=== PATIENT | male | born 2000 | race Caucasian/White ===

== ENCOUNTER 2025-02-20 00:07 | Emergency (ER) | payer SELFPAY ==
[2025-02-20 00:19] VITALS: BP 150/82; PULSE 110; RESP 18; TEMP 36.6; O2SAT 96; BMI 31.2
--- NOTE | 2025-02-20 00:20 | ED_ITS ---
HPI - General Adult General Chief complaint: Psychiatric Symptoms Stated complaint: PSYCH, ETOH, SI IN PD CUSTODY PER EMS Time Seen by Provider: 02/20/25 00:10 Source: patient, EMS and police Mode of arrival: EMS Limitations: other ( alcohol intoxication) History of Present Illness ED Provider: DR. Esqueda HPI narrative: 25-year-old male came in by the police for evaluation after was found drunk, patient made suicidal statement to his mother was made section 12 by the police on arrival patient is intoxicated stated that he is feeling depressed and suicidal because he is breaking up with his girlfriend, no specific plan in his head, patient admit to drink alcohol last night that he usually a does occasionally, declined using any drugs. Related Data Home Medications ?Medication ?Instructions ?Recorded ?Confirmed No Known Home Meds 02/20/25 02/20/25 Allergies Allergy/AdvReac Type Severity Reaction Status Date / Time No Known Allergies Allergy Verified 02/20/25 00:20 [No Known Allergies*] Review of Systems 2 Review of Systems: All other systems are reviewed and are negative Constitutional: Reports as per HPI and Reports no additional constitutional complaints Eyes: Reports as per HPI and Reports no additional eye complaints Reports system reviewed and no additional complaints, except as documented Cardiovascular: Reports as per HPI and Reports no additional cardiovascular complaints Respiratory: Reports as per HPI and Reports no additional respiratory complaints Gastrointestinal: Reports as per HPI and Reports no additional gastrointestinal complaints Genitourinary: Reports no additional female genitourinary complaints Musculoskeletal: Reports no additional musculoskeletal complaints Skin/Breast: Reports system reviewed and no additional complaints, except as docu Psychiatric: Reports no additional psychiatric complaints Endocrine: Reports no additional endocrine complaints Hematologic/Lymphatic: Reports no additional hematologic/lymphatic complaints Allergic/Immunologic: Reports no additional allergic/immunologic complaints Reports system reviewed and no additional complaints, except as documented and Reports Abnormal speech present [facility] Social History Social History Alcohol intake: current Alcohol intake frequency: a few times a month Alcohol type: beer and hard liquor Smoked in Last 30 Days: Yes Use of substances other than those prescribed or required for medical reasons: No Advance Directives: No Advance Directives Information Provided: No Physical Exam ED Vital Signs: Vital Signs - 24 hr 02/20/25 00:19 02/20/25 07:31 02/20/25 09:52 Temperature 97.9 F 98.1 F Pulse Rate 110 H 82 Respiratory Rate 18 16 18 Blood Pressure 150/82 H 134/60 Pulse Oximetry 96 98 Oxygen Delivery Method Room Air Room Air BMI result Body Mass Index 31.2 Vital signs have been reviewed and appear to be correct. Blood pressure elevated. Heart rate normal. Respiratory rate normal. Temperature normal. Oxygen saturation normal. Appearance: Intoxicated,Alert. Oriented X1 to person not to place or time.. No acute distress. Head: Normal external exam. Normocephalic. Atraumatic. No Dia signs noted. No raccoon eyes noted Eyes: PERRLA. EOMI. Conjunctiva and sclera normal. Eyelids normal. ENT: TM's Normal. Pharynx normal. Uvula midline. Moist mucous membranes. No trismus noted. No drooling noted. No muffled voice noted. Neck: Normal inspection. Neck supple. FROM. No adenopathy. Thyroid Normal. No meningeal signs. No neck mass noted. CVS: Normal heart rate and rhythm. Heart sound normal. No murmurs noted. Pulses normal throughout. Respiratory: No respiratory distress. Painless inspiration. Breath sounds normal. No wheezes/rales/rhonchi noted. Chest nontender. No accessory muscle usage noted or decreased air movement noted. Abdomen: Soft and nontender. Bowel sounds normal in all 4 quadrants. No distention noted. No organomegaly noted. No visible injury noted. Back: No CVA tenderness. Full range of motion noted. Skin: Skin warm and dry. Normal skin color. Normal skin turgor. No rashes/lesions/lacerations noted. Extremities: No lower extremity edema. Extremities exhibit normal range of motion. Extremities nontender. Neuro: Oriented X1 Cranial nerve exam: II-XII are grossly intact No motor deficit. No sensory deficit. Reflexes normal. Course Reevaluation(s) Reevaluation #1: will start physician observation, signed out to Dr. Reyes patient need to be re-evaluated when he is sober. Time: 01:32 Reevaluation #2: Time: 08:00 Date: 02/20/25 Provider: Phil Reyes MD Patient in physician observation for psychiatric evaluation. I assumed care of this patient from my colleague, Dr. Esqueda at 02:00 hours. No reported incidents on the patient while he was under my care. Patient's care was turned over my colleague, Dr. Mikel Cancino Time: 08:34 Date: 02/20/25 Provider: Mikel Cancino MD Patient in physician observation for psychiatric evaluation.? No acute events reported overnight. No current complaints. VS stable.? Patient is in bed search status/pending CARE team evaluation. Will continue to monitor. Reevaluation #3: Time: 10:45 Date: 02/20/25 Provider: Mikel Cancino MD Physician observation ended at this time. Patient has been cleared for discharge by the CARE team. Will follow up as an outpatient. hot the fuck who sounds abdomen Medical Decision Making Differential Diagnosis Differential Diagnoses: The differential diagnosis associated with the presentation includes ( medical clearance, alcohol intoxication, drug abuse, SI, HI, hallucination.) Admission/Observation Consideration of admission/observation: Escalation of care including admission/observation considered Lab Data 02/20/25 08:52 02/20/25 08:52 Labs: Lab Results 02/20/25 02/20/25 Range/Units 08:52 09:11 WBC 7.1 (4.8-10.8) X10*3/uL RBC 4.73 (4.60-5.80) X10*6/uL Hgb 14.3 (14.0-18.0) g/dl Hct 41.6 L (42.0-52.0) % MCV 87.9 (80.0-98.0) fL MCH 30.2 (27.0-33.0) pg MCHC 34.4 (31.0-36.0) g/dl RDW 12.4 (11.0-16.0) % Plt Count 274 (160-400) X10*3/uL MPV 10.4 (9.4-12.4) fL Immature Gran % (Auto) 0.1 (0.0-0.4) % Neut % (Auto) 53.1 (45-73) % Lymph % (Auto) 37.4 (20-40) % Stanley % (Auto) 6.8 (2-11) % Eos % (Auto) 2.3 (0-4) % Baso % (Auto) 0.3 (0-2) % Lymph # (Auto) 2.7 (1.2-4.9) X10*3/uL Stanley # (Auto) 0.5 (0.1-1.2) X10*3/uL Eos # (Auto) 0.2 (0.0-0.4) X10*3/uL Baso # (Auto) 0.0 (0.0-0.2) X10*3/uL Abs Immat Gran (auto) 0.01 (0.00-0.03) X10*3/uL Absolute Neuts (auto) 3.8 (2.0-8.3) x10*3/uL Absolute Nucleated RBC 0.000 (0.0-0.012) X10*3/uL Nucleated RBC % (auto) 0.0 (0.0-0.2) /100WBC Sodium 145 (135-145) mmol/L Potassium 4.1 (3.3-5.1) mmol/L Chloride 112 H (96-108) mmol/L Carbon Dioxide 22 (22-29) mmol/L Anion Gap 15 (12-20) BUN 12 (9-16) mg/dL Creatinine 0.93 (0.5-1.4) mg/dL Estim Creat Clear Calc 150.3 Estimated GFR > 60 Random Glucose 92 (60-115) mg/dL Calcium 9.3 (8.4-10.2) mg/dL Total Bilirubin 0.2 (0.0-1.0) mg/dL Direct Bilirubin < 0.2 (0.0-0.5) mg/dL AST 39 H (5-37) U/L ALT 36 (0-40) U/L Alkaline Phosphatase 84 (39-117) U/L Total Protein 7.7 (6.5-8.0) g/dL Albumin 4.7 (3.5-5.0) g/dL Lipase 24 (8-78) U/L Urine Color Yellow Urine Appearance Clear Urine pH 5.0 (5.0-9.0) Ur Specific Fowler 1.020 (1.005-1.025) Urine Protein Negative (Neg-Trace) mg/dL Urine Glucose (UA) Negative (Negative) mg/dL Urine Ketones Negative (Negative) mg/dL Urine Blood Negative (Negative) Urine Nitrite Negative (Negative) Ur Leukocyte Esterase Negative (Negative) Urine Opiates Screen Not Detected (Not Detect) Ur Buprenorphine Scrn Not Detected (Not Detect) ng/mL Ur Oxycodone Screen Not Detected (Not Detect) ng/mL Urine Methadone Screen Not Detected (Not Detect) ng/mL Urine Fentanyl Screen Not Detected (Not Detect) Ur Barbiturates Screen Not Detected (Not Detect) Ur Phencyclidine Scrn Not Detected (Not Detect) Ur Amphetamines Screen Not Detected (Not Detect) U Benzodiazepines Scrn Not Detected (Not Detect) Urine Cocaine Screen Not Detected (Not Detect) U Marijuana (THC) Screen Not Detected (Not Detect) Ethyl Alcohol 88 mg/dL Discharge Plan Discharge Clinical Impression: Alcohol intoxication, Suicidal ideation Patient Disposition: Home, Self-Care Instructions: Abuse of Alcohol (DC), Help Prevent Suicide (ED) Additional Instructions: _ DISCHARGE DIAGNOSES: Alcohol use disorder and suicidal thoughts HISTORY OF PRESENTATION: ?You presented for evaluation for the above EMERGENCY DEPARTMENT COURSE,TESTS, TREATMENTS: While in the ED today you were evaluated by our crisis team DISCHARGE MEDICATIONS: ?[We have made no changes to your regular medication regimen] FOLLOW-UP: ?Call your primary or general physician soon as possible to discuss your symptoms, your ED visit and to discuss follow up plans Call your primary care and mental health specialist for follow up as discussed with care team INSTRUCTIONS ?& RETURN PRECAUTIONS: If any symptoms change first call your primary physician, if it is after-hours your primary doctors office should have a provider fashion patternmaker you can speak with. If the symptoms are severe or very concerning to you then call 911 or return to the ED. [07] Mikel Cancino MD Emergency Physician [facility] Prescriptions: No Action No Known Home Meds Referrals: [facility] [place] [facility] [Provider Group] Interventions: [place]-Suicide Risk Severity Scale Last Done: 02/20/25 03:29 ED Discharge Assessment Last Done: 02/20/25 11:20 Discharge Date/Time: 02/20/25 11:21 Print Language: Cambodian
--- NOTE | 2025-02-20 00:25 | PC.NURSE ---
pt refused lab work, will provide urine but does not have to pee yet
--- NOTE | 2025-02-20 00:40 | PC.NURSE ---
report given to Pod. pt calm and cooperative at this time
--- NOTE | 2025-02-20 01:07 | MHC.EDTECH ---
pt refusing lab work, VS. RN AWARE.
[2025-02-20 07:31] VITALS: RESP 16
--- NOTE | 2025-02-20 07:32 | PC.NURSE ---
Assumed care of patient at 0645, patient appears to be in no apparent distress this am, laying in bed, refusing labs/urine. Continue plan of care for medical clearance and CARE team ignacia
[2025-02-20 08:56] LABS: MANUAL DIFF FLAG NO
[2025-02-20 08:57] LABS: Basophils Percent Auto 0.3 % (0-2); Eosinophils Absolute Auto 0.2 X10*3/uL (0.0-0.4); Eosinophils Percent Auto 2.3 % (0-4); Hematocrit 41.6 % (42.0-52.0); Hemoglobin 14.3 g/dl (14.0-18.0); Imm Gran Abs Auto 0.01 X10*3/uL (0.00-0.03); Imm Gran Pct Auto 0.1 % (0.0-0.4); Lymphocytes Absolute Auto 2.7 X10*3/uL (1.2-4.9); Lymphocytes Percent Auto 37.4 % (20-40); Mean Corpuscular HGB Conc 34.4 g/dl (31.0-36.0); Mean Corpuscular Hemoglobin 30.2 pg (27.0-33.0); Mean Corpuscular Volume 87.9 fL (80.0-98.0); Mean Platelet Volume 10.4 fL (9.4-12.4); Monocytes Absolute Auto 0.5 X10*3/uL (0.1-1.2); Monocytes Percent Auto 6.8 % (2-11); Neutrophils Absolute Auto 3.8 x10*3/uL (2.0-8.3); Neutrophils Percent Auto 53.1 % (45-73); Platelet Count 274 X10*3/uL (160-400); Red Blood Count 4.73 X10*6/uL (4.60-5.80); Red Cell Distribution Width 12.4 % (11.0-16.0); White Blood Count 7.1 X10*3/uL (4.8-10.8)
--- NOTE | 2025-02-20 09:07 | PC.NURSE ---
Pt agreeable to bloodwork and labs this am after speaking with this RN regarding the importance for being seen by CARE team
[2025-02-20 09:28] LABS: Alanine Aminotransferase 36 U/L (0-40); Albumin Level 4.7 g/dL (3.5-5.0); Alkaline Phosphatase 84 U/L (39-117); Anion Gap 15 (12-20); Aspartate Amino Transferase 39 U/L (5-37); Bilirubin Direct < 0.2 mg/dL (0.0-0.5); Bilirubin Total 0.2 mg/dL (0.0-1.0); Blood Urea Nitrogen 12 mg/dL (9-16); Calcium 9.3 mg/dL (8.4-10.2); Carbon Dioxide 22 mmol/L (22-29); Chloride 112 mmol/L (96-108); Creatinine Clr Calc Pharmacy 150.3; Estimated Glomerular Filt Rate > 60; Ethanol 88 mg/dL; Glucose Random 92 mg/dL (60-115); Lipase 24 U/L (8-78); Potassium 4.1 mmol/L (3.3-5.1); Sodium 145 mmol/L (135-145); Total Protein 7.7 g/dL (6.5-8.0)
[2025-02-20 09:35] LABS: Amphetamine Screen Urine Not Detected (Not Detect); Barbiturates, Urine Not Detected (Not Detect); Benzodiazepines Screen Urine Not Detected (Not Detect); Buprenorphine Scr Not Detected (Not Detect); Cannabinoid Screen Urine Not Detected (Not Detect); Cocaine Screen Urine Not Detected (Not Detect); Fentanyl, urine Not Detected (Not Detect); Methadone Screen, Urine Not Detected (Not Detect); Opiate Screen Urine Not Detected (Not Detect); Oxycodone Screen Urine Not Detected (Not Detect); Phencyclidine Screen Urine Not Detected (Not Detect)
[2025-02-20 09:38] LABS: Appearance Urine Clear; Color Urine Yellow; Glucose Urine UA Negative (Negative); Leukocyte Esterase Urine Negative (Negative); Nitrite Urine Negative (Negative); Urine Blood Negative (Negative); Urine Ketones Negative (Negative); Urine Protein Negative (Neg-Trace)
[2025-02-20 09:52] VITALS: BP 134/60; PULSE 82; RESP 18; TEMP 36.7; O2SAT 98
[2025-02-20 11:20] VITALS: BP 142/68; PULSE 78; RESP 16; TEMP 36.7; O2SAT 98
== END 2025-02-20 11:21 | disposition home or self-care (01) ==
PROVIDERS: Emergency Medicine; Emergency Provider Emergency Medicine; PCP Physician Assistant Medical
DX: F10.129 Alcohol abuse with intoxication, unspecified (principal); R45.851 Suicidal ideations; F33.1 Major depressive disorder, recurrent, moderate; Y90.4 Blood alcohol level of 80-99 mg/100 ml; Z51.81 Encounter for therapeutic drug level monitoring; Z79.899 Other long term (current) drug therapy
CPT/HCPCS: 36415; 80048; 80076; 80307; 81003; 83690; 85025; 99284; 99285; S9485